=== PATIENT | male | born 1945 | race Caucasian/White ===

== ENCOUNTER 2023-05-30 20:19 | Inpatient (IN) | payer OTHER ==
[~2023-05-30] VITALS: Ht 162.6 cm; Wt 71.2 kg
[2023-05-30 20:23] VITALS: BP_SYST 124; PULSE 79; RESP 18; TEMP 97.6; O2SAT 96
[2023-05-30 21:14] LABS: BASOPHILS # (AUTO) 0.1 K/uL (0.0-0.2); BASOPHILS % (AUTO) 0.5 % (0.0-2.0); EOSINOPHILS # (AUTO) 0.1 K/uL (0.0-0.4); EOSINOPHILS % (AUTO) 0.5 % (0.0-4.0); HEMATOCRIT 35.3 % (36-54); HEMOGLOBIN 11.6 g/dL (14.0-18.0); LYMPHOCYTES # (AUTO) 0.9 K/uL (1.0-5.5); LYMPHOCYTES % (AUTO) 8.9 % (20.5-51.5); MEAN CORPUSCULAR HEMOGLOBIN 33 pg (27-31); MEAN CORPUSCULAR HGB CONC 33 % (32-36); MEAN CORPUSCULAR VOLUME 101 fL (79.0-98.0); MONOCYTES # (AUTO) 0.7 K/uL (0.0-1.0); MONOCYTES % (AUTO) 6.5 % (1.7-9.3); NEUTROPHILS # (AUTO) 8.6 K/uL (1.8-7.7); NEUTROPHILS % (AUTO) 83.6 % (40.0-70.0); PLATELET COUNT (AUTO) 135 K/uL (130-430); RED CELL DISTRIBUTION WIDTH 14.4 % (9.0-15.0); WHITE BLOOD COUNT (AUTO) 10.3 K/uL (4.8-10.8)
[2023-05-30] MEDS ORDERED: MORPHINE 4 MG INJ. 4 MG/ML VIAL IM ONE (21:15)
[2023-05-30 21:35] LABS: ALANINE AMINOTRANSFERASE 18 U/L (12-78); ALBUMIN 4.4 g/dL (3.4-4.8); ANION GAP 11 (5-15); ASPARTATE AMINOTRANSFERASE 11 U/L (10-37); CALCIUM 9.4 mg/dL (8.4-11.0); CARBON DIOXIDE 30 mmol/L (23-29); CHLORIDE 94 mmol/L (98-107); GLUCOSE 165 mg/dL (74-106); POTASSIUM 4.3 mmol/L (3.5-5.1); SODIUM SERUM 135 mmol/L (136-145); TOTAL BILIRUBIN 0.5 mg/dL (0.0-1.0); TOTAL PROTEIN, SERUM 8.1 g/dL (6.4-8.3); UREA NITROGEN, BLOOD 47 mg/dL (8-21)
[2023-05-30 21:39] LABS: CREATININE 8.08 mg/dL (0.55-1.30)
[2023-05-30] MEDS ORDERED: ONDANSETRON 4 MG ODT TAB PO ONE (21:45)
[2023-05-30] MEDS ORDERED: NACL 0.9% 1,000 ML IV ONE (23:00)
[2023-05-30] MEDS ORDERED: PIPERACILLIN/TAZO 3.375 GM in NS 50 ML IV ONE (23:00)
[2023-05-30] MEDS ORDERED: MORPHINE 4 MG INJ. 4 MG/ML VIAL IVP PRN (23:15)
[2023-05-30] MEDS ORDERED: MORPHINE 2 MG/ML INJ. SYRINGE IVP PRN (23:15)
[2023-05-30] MEDS ORDERED: PIPERACILLIN/TAZOBACTAM 3.375 GM/VIAL (ZOSYN) IV ONE (23:26)
[2023-05-31] VITALS (8 sets, daily range): BP systolic 124–151; PULSE 71–84; RESP 16–18; TEMP 96.7–98; O2SAT 84–100
[2023-05-31] MEDS ORDERED: BUPIVACAINE LIPOSOME/PF 266 MG/20 ML VIAL INFIL ONE (01:19)
[2023-05-31] MEDS ORDERED: fentaNYL CITRATE/PF 100 MCG/2 ML AMP ONE (01:46)
[2023-05-31 01:56] LABS: INR 1.1 (0.80-1.20); PROTHROMBIN TIME 11.3 SECS (9.5-12.5)
[2023-05-31] MEDS ORDERED: HYDROmorphone 1 MG/ML INJ. CARTRIDGE IVP PRN ×2 (02:45)
[2023-05-31] MEDS ORDERED: KETOROLAC TROMETHAMINE 30 MG VIAL IM PRN (02:45)
[2023-05-31] MEDS ORDERED: hydrALAZINE HCL 20 MG/ML VIAL IV PRN (02:45)
[2023-05-31] MEDS ORDERED: NALOXONE HCL 0.4 MG/ML AMP (NARCAN) IVP PRN ×3 (02:45)
[2023-05-31] MEDS ORDERED: ONDANSETRON HCL 4 MG/2 ML VIAL IVP PRN (02:45)
[2023-05-31] MEDS ORDERED: traMADol HCL HCL 50 MG TABLET (ULTRAM) PO PRN (04:15)
[2023-05-31] MEDS: D5/0.45 NS 1,000 ML IV SCH ×2 (05:20→09:15)
[2023-05-31] MEDS ORDERED: SEVOFLURANE 15 MIN GAS INH ONE (07:49)
[2023-05-31] MEDS ORDERED: NS 1000 ML IV.SOLN IV ONE (07:49)
[2023-05-31] MEDS ORDERED: NS IRRIG SOLN 1000 ML IR ONE (07:49)
[2023-05-31] MEDS ORDERED: SUCCINYLCHOLINE CHLORIDE 20 MG/ML(QUELICIN) ONE (07:49)
[2023-05-31] MEDS ORDERED: ROCURONIUM BROMIDE 10 MG/ML (ZEMURON) ONE (07:49)
[2023-05-31] MEDS ORDERED: ePHEDrine sulfate 50 MG/ML VIAL ONE (07:49)
[2023-05-31] MEDS ORDERED: PROPOFOL 200MG/ 20ML VIAL (DIPRIVAN) IV ONE (07:49)
[2023-05-31] MEDS ORDERED: LIDOCAINE/EPI 1% 1:100000 20 ML VIAL ONE (07:49)
[2023-06-01 00:46] VITALS: BP_SYST 139; PULSE 71; RESP 16; TEMP 97.3; O2SAT 98
[2023-06-01 06:15] LABS: BASOPHILS % (AUTO) 0.3 % (0.0-2.0); EOSINOPHILS # (AUTO) 0.1 K/uL (0.0-0.4); EOSINOPHILS % (AUTO) 0.8 % (0.0-4.0); HEMATOCRIT 28.4 % (36-54); HEMOGLOBIN 9.4 g/dL (14.0-18.0); LYMPHOCYTES % (AUTO) 11.7 % (20.5-51.5); MEAN CORPUSCULAR HEMOGLOBIN 33 pg (27-31); MEAN CORPUSCULAR HGB CONC 33 % (32-36); MEAN CORPUSCULAR VOLUME 101 fL (79.0-98.0); MONOCYTES # (AUTO) 0.7 K/uL (0.0-1.0); MONOCYTES % (AUTO) 8.4 % (1.7-9.3); NEUTROPHILS # (AUTO) 6.9 K/uL (1.8-7.7); NEUTROPHILS % (AUTO) 78.8 % (40.0-70.0); PLATELET COUNT (AUTO) 102 K/uL (130-430); RED BLOOD CELL COUNT(AUTO) 2.81 MIL/uL (4.2-6.2); RED CELL DISTRIBUTION WIDTH 14.7 % (9.0-15.0); WHITE BLOOD COUNT (AUTO) 8.7 K/uL (4.8-10.8)
[2023-06-01 06:44] LABS: ERYTHROCYTE SEDIMENTATION RATE 14 MM/HR (0-15)
[2023-06-01 06:55] LABS: ANION GAP 10 (5-15); CALCIUM 8.8 mg/dL (8.4-11.0); CARBON DIOXIDE 26 mmol/L (23-29); CHLORIDE 98 mmol/L (98-107); CREATININE 6.14 mg/dL (0.55-1.30); GLUCOSE 104 mg/dL (74-106); PHOSPHORUS 5.9 mg/dL (2.7-4.5); POTASSIUM 4.5 mmol/L (3.5-5.1); SODIUM SERUM 134 mmol/L (136-145); UREA NITROGEN, BLOOD 31 mg/dL (8-21)
[2023-06-01 08:32] VITALS: BP_SYST 140; PULSE 72; RESP 17; TEMP 98.5; O2SAT 95
[2023-06-01] MEDS ORDERED: ACETAMINOPHEN 325 MG TABLET PO PRN ×2 (10:15)
[2023-06-01 11:24] VITALS: BP_SYST 143; PULSE 74; RESP 18; TEMP 98; O2SAT 97
[2023-06-01 13:39] VITALS: O2SAT 95
[2023-06-01 16:34] VITALS: BP_SYST 138; PULSE 69; RESP 17; TEMP 98; O2SAT 97
[2023-06-01 20:05] VITALS: BP_SYST 144; PULSE 73; RESP 16; TEMP 97.9; O2SAT 95
[2023-06-02 00:53] VITALS: BP_SYST 156; PULSE 76; RESP 18; TEMP 98.1; O2SAT 95
[2023-06-02 05:47] LABS: BASOPHILS % (AUTO) 0.3 % (0.0-2.0); EOSINOPHILS # (AUTO) 0.2 K/uL (0.0-0.4); EOSINOPHILS % (AUTO) 2.9 % (0.0-4.0); HEMATOCRIT 27.6 % (36-54); HEMOGLOBIN 9.2 g/dL (14.0-18.0); LYMPHOCYTES # (AUTO) 1.4 K/uL (1.0-5.5); LYMPHOCYTES % (AUTO) 16.4 % (20.5-51.5); MEAN CORPUSCULAR HEMOGLOBIN 34 pg (27-31); MEAN CORPUSCULAR HGB CONC 34 % (32-36); MEAN CORPUSCULAR VOLUME 102 fL (79.0-98.0); MONOCYTES # (AUTO) 0.7 K/uL (0.0-1.0); MONOCYTES % (AUTO) 8.2 % (1.7-9.3); NEUTROPHILS % (AUTO) 72.2 % (40.0-70.0); PLATELET COUNT (AUTO) 99 K/uL (130-430); RED BLOOD CELL COUNT(AUTO) 2.71 MIL/uL (4.2-6.2); RED CELL DISTRIBUTION WIDTH 13.8 % (9.0-15.0); WHITE BLOOD COUNT (AUTO) 8.3 K/uL (4.8-10.8)
[2023-06-02 06:19] LABS: ANION GAP 14 (5-15); CALCIUM 8.3 mg/dL (8.4-11.0); CARBON DIOXIDE 22 mmol/L (23-29); CHLORIDE 96 mmol/L (98-107); GLUCOSE 106 mg/dL (74-106); PHOSPHORUS 5.1 mg/dL (2.7-4.5); POTASSIUM 4.9 mmol/L (3.5-5.1); SODIUM SERUM 132 mmol/L (136-145); UREA NITROGEN, BLOOD 53 mg/dL (8-21)
[2023-06-02 06:31] LABS: CREATININE 8.26 mg/dL (0.55-1.30)
[2023-06-02 08:00] VITALS: BP_SYST 161; PULSE 53; RESP 18; TEMP 98.3; O2SAT 96
[2023-06-02 10:20] VITALS: O2SAT 96
[2023-06-02 11:17] VITALS: BP_SYST 150; PULSE 78; RESP 17; TEMP 98.2; O2SAT 98
[2023-06-02] MEDS ORDERED: LIP10 PO (11:47)
[2023-06-02] MEDS ORDERED: NOR10 PO ×2 (11:47→13:55)
[2023-06-02] MEDS ORDERED: TRAM50TA2 PO ×2 (11:50→13:55)
[2023-06-02] MEDS ORDERED: TAMS-11 PO (11:53)
[2023-06-02] MEDS ORDERED: SEVE800T8 PO (11:53)
[2023-06-02] MEDS ORDERED: NEPH PO (11:53)
[2023-06-02] MEDS ORDERED: amLODIPine BESYLATE 10 MG TABLET PO ONE (13:00)
[2023-06-02 16:23] VITALS: BP_SYST 146; PULSE 77; RESP 18; TEMP 97.9; O2SAT 96
[2023-06-02 16:38] VITALS: BP_SYST 146; PULSE 77; RESP 18; TEMP 97.9; O2SAT 96
[2023-06-02] MEDS ORDERED: EPOETIN ALFA 4,000 UNITS/ML VIAL SUBCUT SCH (17:00)
[2023-06-03] MEDS ORDERED: amLODIPine BESYLATE 10 MG TABLET PO SCH (09:00)
== END 2023-06-02 17:00 | disposition home or self-care (01) | DRG 350 ==
LOC: SED 20:19 → SMU 23:11 → STU 05-31 05:02 → SMU 05-31 05:10
PROVIDERS: ADMIT Preventive Medicine Preventive Medicine/Occupational Environmental Medicine; ATTEND Preventive Medicine Preventive Medicine/Occupational Environmental Medicine
PROC: 5A1D70Z Performance of Urinary Filtration, Intermittent, Less than 6 Hours Per Day (ICD-10-PCS; 2023-05-31)
PROC: 0YU50JZ Supplement Right Inguinal Region with Synthetic Substitute, Open Approach (ICD-10-PCS; principal; 2023-05-31 02:30)
PROC: 5A1D70Z Performance of Urinary Filtration, Intermittent, Less than 6 Hours Per Day (ICD-10-PCS; 2023-06-02)
DX: K40.30 Unilateral inguinal hernia, with obstruction, without gangrene, not specified as recurrent (principal); N18.6 End stage renal disease; E87.1 Hypo-osmolality and hyponatremia; I12.0 Hypertensive chronic kidney disease with stage 5 chronic kidney disease or end stage renal disease; N17.9 Acute kidney failure, unspecified; D63.1 Anemia in chronic kidney disease; D69.6 Thrombocytopenia, unspecified; E11.65 Type 2 diabetes mellitus with hyperglycemia; E11.22 Type 2 diabetes mellitus with diabetic chronic kidney disease; E78.00 Pure hypercholesterolemia, unspecified; E83.39 Other disorders of phosphorus metabolism; E83.51 Hypocalcemia; Z79.4 Long term (current) use of insulin; Z99.2 Dependence on renal dialysis
CPT/HCPCS: 36415; 71045; 76376; 76870-TC; 80048; 80053; 82962; 83735; 84100; 85025; 85610-TC; 85651-TC; 85730-TC; 86886; 86900; 86901; 87040; 87081; 90935; 90937; 93005; 96365; 96372; 99285; C9290; J0330; J0885; J2270; J2543; J2704; J3010; J7030; Q0162